=== PATIENT | male | born 1990 | race Two or more races ===

== ENCOUNTER 2016-09-20 18:18 | Emergency (ER) | payer OTHER ==
[~2016-09-20] VITALS: Ht 177.8 cm; Wt 81.6 kg
[2016-09-20] MEDS ORDERED: Fluorescein Strips LEFT EYE ONE (18:30)
[2016-09-20] MEDS ORDERED: Proparacaine 0.5% Opth Soln 15ml LEFT EYE ONE (18:30)
[2016-09-20 18:58] VITALS: BP 123/71
[2016-09-20] MEDS ORDERED: Tetracaine 0.5% Opth Soln LEFT EYE ONE (19:00)
[2016-09-20] MEDS ORDERED: OFLOXACIN10 ML OP (19:07)
[2016-09-20] MEDS ORDERED: OMEPRAZOLE20 M2 ORAL (19:07)
[2016-09-20 19:17] VITALS: BP 123/71
--- NOTE | 2016-09-20 22:09 | Emergency Room Report ---
History of Present Illness General Chief Complaint: Eye Problems Source: Patient Present Illness HPI The patient is a 25-year-old male with injury to the L eye. He states that a metal bottle cap was popped off yesterday and hit the L eye. He states he has always had poor vision in the L eye but denies wearing any corrective lenses. Pain is a 4/10 dull ache and does not radiate. He does admit to worsened vision vision of the L eye. He denies other symptoms including N, V, F, chills, dizziness, headache Allergies: Coded Allergies: No Known Allergies (Unverified , 09/20/16) Patient History Past Medical History: see triage record Pertinent Family History: none Reviewed Nursing Documentation: PMH: Agreed, PSxH: Agreed Nursing Documentation-PMH Past Medical History: No Stated History Review of Systems All Other Systems: negative except mentioned in HPI Physical Exam Vital Signs Date Time Temp Pulse Resp B/P Pulse Ox O2 Delivery O2 Flow Rate FiO2 09/20/16 18:23 98.8 80 18 120/68 98 Room Air Sp02 EP Interpretation: reviewed, normal General Appearance: no apparent distress, alert, GCS 15, non-toxic Head: normocephalic, atraumatic Eyes: left eye Scleral Injection, left eye fluoroscene uptake - inferior to the mid L cornea, left eye photophobia, bilateral eye EOMI, bilateral eye PERRL ENT: hearing grossly normal, normal pharynx, no angioedema, normal voice Neurologic: alert, oriented x3, responsive, motor strength/tone normal, sensory intact, speech normal Psychiatric: judgement/insight normal, memory normal, mood/affect normal, no suicidal/homicidal ideation Skin: normal color, no rash, warm/dry, well hydrated Medical Decision Making PA Attestation Dr. Gallardo is my supervising physician. Patient management was discussed with my supervising physician Diagnostic Impression: Primary Impression: Conjunctival abrasion Qualified Codes: S05.02XA - Injury of conjunctiva and corneal abrasion without foreign body, left eye, initial encounter Additional Impression: GERD (gastroesophageal reflux disease) Qualified Codes: K21.9 - Gastro-esophageal reflux disease without esophagitis ER Course The patient is a 25-year-old male with injury to the L eye Differential diagnoses considered but not limited to conjunctivitis, corneal abrasion, contusion, globe injury, among others PE: Left eye: There is no surrounding ecchymosis. No edema. There is injection of the conjunctiva.PERRL. EOMI Tetracaine was applied to the affected eye and then fluoroscene strip was applied to bottom internal eyelid. UV light was used to assess for increased uptake. There is a horizontal linear uptake inferior to the mid cornea The patient will be discharged home with a prescription for Ocuflox. He is also given a refill of medication for GERD ER precautions are given. He was told he needs to followup with [employer] [facility] Last Vital Signs Date Time Temp Pulse Resp B/P Pulse Ox O2 Delivery O2 Flow Rate FiO2 09/20/16 19:17 98.7 84 17 123/71 98 Room Air Status: improved Disposition: HOME, SELF-CARE Condition: Improved Scripts Omeprazole (OMEPRAZOLE) 20 Mg Capsule. 20 MG ORAL DAILY, #30 CAP Prov: LEE ALCALA 09/20/16 Ofloxacin (Ofloxacin) 5 Ml Drops 1 DROP OP QID for 5 Days, ML Prov: LEE ALCALA 09/20/16 Referrals: NOT CHOSEN IPA/,REFERRING (PCP) Patient Instructions: Corneal Abrasion, Indigestion Additional Instructions: I discussed my findings with the patient. All questions and concerns have been answered. Treatment and medication compliance have been addressed. I advised the patient that they need to follow up with PMD in 3-5 days. Return to ED if symptoms worsen, new symptoms arise, or if needed for any reason. Patient verbalized understanding of discharge instructions. LEE ALCALA Sep 20, 2016 22:09
== END 2016-09-20 19:17 | disposition home or self-care (01) ==
LOC: EMR 18:55
DX: S05.02XA Injury of conjunctiva and corneal abrasion without foreign body, left eye, initial encounter (principal); K21.9 Gastro-esophageal reflux disease without esophagitis; W22.8XXA Striking against or struck by other objects, initial encounter; Y93.9 Activity, unspecified; Y92.9 Unspecified place or not applicable
CPT/HCPCS: 99284

== ENCOUNTER 2017-09-24 19:10 | Emergency (ER) | payer OTHER ==
[~2017-09-24] VITALS: Ht 175.3 cm; Wt 79.4 kg
[~2017-09-24 19:10] MED LIST: OFLOXACIN10 ML OP; OMEPRAZOLE20 M2 ORAL
[2017-09-24 19:15] VITALS: BP 120/74
[2017-09-24] MEDS ORDERED: Methocarbamol 500mg tab ORAL ONE (19:45)
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
[2017-09-24] MEDS ORDERED: LIDOCAINE700 M1 TP (20:25)
[2017-09-24] MEDS ORDERED: ROBAXIN500 MG PO (20:25)
[2017-09-24] MEDS ORDERED: IBUPROFEN600 MG ORAL (20:25)
[2017-09-24 20:36] VITALS: BP 120/74
== END 2017-09-24 20:36 | disposition home or self-care (01) ==
LOC: EMR 19:41
DX: S50.811A Abrasion of right forearm, initial encounter (principal); M54.9 Dorsalgia, unspecified; M54.2 Cervicalgia; R10.9 Unspecified abdominal pain; M25.519 Pain in unspecified shoulder; V43.52XA Car driver injured in collision with other type car in traffic accident, initial encounter; Y92.410 Unspecified street and highway as the place of occurrence of the external cause
CPT/HCPCS: 99284